=== PATIENT | female | born 1950 | race American Indian/Alaskan Native ===

== ENCOUNTER 2021-02-16 18:37 | Emergency (ER) | payer MEDICARE ==
--- NOTE | 2021-02-16 19:01 | Emergency Department Report ---
ED CPR HPI - General Chief Complaint: Cardiac Arrest/CPR Stated Complaint: CARDIAC ARREST Time Seen by Provider: 02/16/21 18:56 Source: EMS - History of Present Illness Initial Comments: Patient is 70 years old female with history of gastric cancer. Patient brought to the emergency room via EMS from home for evaluation post cardiac arrest. EMS stated that patient collapsed during rest he was a witness arrest. EMS stated that downtime before ACLS was 10 minutes. EMS stated that patient initial rhythm was V. fib and patient defibrillated and rhythm change to asystole. EMS stated that patient had ROSC however upon arrival to the ER patient does not have a pulse. ACLS immediately started. CPR initiated. Patient is already intubated by EMS. Patient has good breath sound on both side. Initial rhythm in the ER show asystole. Right tibia IO placed by EMS is not functioning. I placed a left EJ. Patient received epi, amiodarone, bicarb. Blood glucose was 133. Unfortunately patient remained in asystole. Patient pronounced at 6:51 p.m. For further information please refer to code sheets. Complaint: collapsed during rest Place: home Initial Findings in the Field: VTACH/VFIB ROSC in the Field: Yes Associated Injuries: No Treatments Prior to Arrival: intubation, epinephrine mgs # (2) - Related Data Allergies Allergy/AdvReac Type Severity Reaction Status Date / Time Unable to Assess Allergy Unverified 02/16/21 19:28 ED Review of Systems ROS: Stated complaint: CARDIAC ARREST Other details as noted in HPI Comment: Unobtainable due to pts medical conditions ED Physical Exam - General General appearance: other (Intubated.) - Eye Pupils: Present: other (Pupils are 5 mm, fixed and dilated) - Neck Neck exam: Present: normal inspection - Respiratory Respiratory exam: Present: other (No spontaneous breathing.) - Cardiovascular Cardiovascular Exam: Present: other (No spontaneous heart tone.) - GI/Abdominal GI/Abdominal exam: Present: soft. Absent: distended - Neurological Exam Neurological exam: Present: other (Intubated.) - Skin Skin exam: Present: warm, dry - EJ/Peripheral Line Neck L Time Out Performed: Yes Indications: nurses unable to establis Skin Cleansed in Sterile Fashion: Yes Size: 20 Dressing Placed: Tegaderm, tape Patient Tolerated Procedure: well, no complications Critical Care Time: Yes Critical care time in (mins) excluding proc time.: 30 Critical care attestation.: If time is entered above; I have spent that time in minutes in the direct care of this critically ill patient, excluding procedure time. ED Disposition Clinical Impression: Cardiopulmonary arrest Disposition: 20 Is pt being admited?: No Condition: Stable
== END 2021-02-16 23:40 ==
LOC: ED 18:37
DX: I46.9 Cardiac arrest, cause unspecified (principal)
CPT/HCPCS: 82962; 92950; 99285